=== PATIENT | male | born 1935 | race African-American/Black ===

== ENCOUNTER 2021-10-26 00:59 | Inpatient (IN) | payer OTHER ==
[2021-10-26] VITALS (7 sets, daily range): BP systolic 116–142; BP diastolic 59–78
[~2021-10-26] VITALS: Ht 172.7 cm; Wt 72.6 kg
[2021-10-26] MEDS ORDERED: SODIUM CHLORIDE 0.9% 1,000 ML IV ONE (01:30)
[2021-10-26 03:41] LABS: EOSINOPHILS % 0.6 % (0.0-5.0); HEMATOCRIT. 32.6 % (42.0-52.0); HEMOGLOBIN. 10.8 g/dL (14.0-18.0); LYMPHOCYTES % 13.5 % (20.0-50.0); MEAN CORPUSCULAR HEMOGLOBIN 29.7 pg (28.0-32.0); MEAN CORPUSCULAR VOLUME 89.5 fL (80.0-94.0); MEAN PLATELET VOLUME 8.6 fl (7.4-10.4); NEUTROPHILS % 74.9 % (40.0-76.0); PLATELET 127 x1000/uL (130-400); RED BLOOD CELL COUNT 3.64 mill/uL (4.7-6.1)
[2021-10-26 03:47] LABS: CHLORIDE 115 mEq/L (98-107)
[2021-10-26] MEDS ORDERED: ONDANSETRON HCL 4MG/2ML INJ IV STA (04:28)
[2021-10-26] MEDS ORDERED: MORPHINE SULFATE 4 MG/ML CPJ (NOT FOR IM USE) IV STA (04:28)
[2021-10-26] MEDS ORDERED: FUROSEMIDE 40MG/4ML VIAL IV ONE (04:30)
[2021-10-26] MEDS ORDERED: ASPIRIN 81MG TABLET PO ONE (04:30)
[2021-10-26 04:47] LABS: CLARITY URINE CLEAR (CLEAR); COLOR URINE YELLOW (YELLOW); KETONES URINE NEGATIVE (NEGATIVE); LEUKOCYTE ESTERASE URINE 1+ (NEGATIVE); NITRITE URINE POSITIVE (NEGATIVE); OCCULT BLOOD URINE NEGATIVE (NEGATIVE); PROTEIN URINE 1+ (NEGATIVE); SPECIFIC GRAVITY URINE 1.015 (1.005-1.030); UROBILINOGEN URINE 0.2 E.U./dL (0.2-1.0)
[2021-10-26] MEDS ORDERED: LEVOFLOXACIN 500MG PREMIX 100 ML IV ONE (05:00)
[2021-10-26] MEDS ORDERED: ENOXAPARIN 80MG/0.8ML SYR SUBCUT ONE (05:00)
[2021-10-26] MEDS ORDERED: ACETAMINOPHEN 325MG TABLET PO PRN (10:45)
[2021-10-26] MEDS ORDERED: LEVOFLOXACIN 500MG PREMIX 100 ML IV SCH (10:45)
[2021-10-26] MEDS ORDERED: ONDANSETRON HCL 4MG/2ML INJ IV PRN (10:45)
[2021-10-26] MEDS ORDERED: SODIUM CHLORIDE 0.45% 1,000 ML IV SCH (10:45)
[2021-10-26] MEDS: ENOXAPARIN 80MG/0.8ML SYR SUBCUT SCH (14:56)
[2021-10-26] MEDS ORDERED: TRAMADOL 50MG TABLET PO PRN (16:15)
[2021-10-26] MEDS ORDERED: NALOXONE HCL 0.4MG/ML VIAL IV PRN (16:15)
[2021-10-26] MEDS: FUROSEMIDE 40MG/4ML VIAL IVP SCH (18:00)
[2021-10-26] MEDS: ATORVASTATIN CALCIUM 40MG TABLET PO SCH (21:00)
[2021-10-27] VITALS (9 sets, daily range): BP systolic 111–137; BP diastolic 53–70
[2021-10-27] MEDS: ENOXAPARIN 80MG/0.8ML SYR SUBCUT SCH ×3 (00:06→23:40)
[2021-10-27] MEDS: FUROSEMIDE 40MG/4ML VIAL IVP SCH ×2 (05:40→18:28)
[2021-10-27] MEDS: LEVOFLOXACIN 250MG PREMIX 50 ML IV SCH (10:15)
[2021-10-27] MEDS: LEVOTHYROXINE SODIUM 50MCG TABLET PO SCH (10:15)
[2021-10-27 10:42] LABS: BASOPHILS % 0.8 % (0.0-2.0); EOSINOPHILS % 0.4 % (0.0-5.0); HEMATOCRIT. 33.4 % (42.0-52.0); HEMOGLOBIN. 10.9 g/dL (14.0-18.0); LYMPHOCYTES % 9.9 % (20.0-50.0); MEAN CORPUSCULAR HEMOGLOBIN 30.3 pg (28.0-32.0); MEAN CORPUSCULAR VOLUME 92.5 fL (80.0-94.0); MEAN PLATELET VOLUME 9.2 fl (7.4-10.4); MONOCYTES % 10.7 % (2.0-8.0); NEUTROPHILS % 78.2 % (40.0-76.0); PLATELET 115 x1000/uL (130-400); RED BLOOD CELL COUNT 3.61 mill/uL (4.7-6.1); RED CELL DISTRIBUTION WIDTH 19.9 % (11.6-14.6)
[2021-10-27] MEDS ORDERED: BRIM5DRO6 EACHEYE (16:19)
[2021-10-27] MEDS ORDERED: FERR-71 MT (16:25)
[2021-10-27] MEDS ORDERED: LATA7.5D OP (16:25)
[2021-10-27] MEDS ORDERED: HYDR100T26 PO (16:25)
[2021-10-27] MEDS ORDERED: EPOE200014 SQ (16:35)
[2021-10-27] MEDS ORDERED: SODI650T MT (16:35)
[2021-10-27] MEDS ORDERED: ASCO125T PO (16:36)
[2021-10-27] MEDS ORDERED: ISOS10TA53 MT (16:44)
[2021-10-27] MEDS ORDERED: ASPI-1497 MT (16:44)
[2021-10-27] MEDS ORDERED: FURO40TA5 PO (16:44)
[2021-10-27] MEDS ORDERED: APIX2.5T PO (16:44)
[2021-10-27] MEDS ORDERED: ATOR-2 MT (16:44)
[2021-10-27] MEDS ORDERED: POTA20TA82 MT (16:44)
[2021-10-27 16:55] LABS: INR 1.2; PROTHROMBIN TIME 12.4 sec (9.6-11.0)
[2021-10-27] MEDS: ATORVASTATIN CALCIUM 40MG TABLET PO SCH (20:18)
[2021-10-28] VITALS (7 sets, daily range): BP systolic 108–133; BP diastolic 55–72
[2021-10-28] MEDS: FUROSEMIDE 40MG/4ML VIAL IVP SCH ×2 (05:43→18:03)
[2021-10-28 07:15] LABS: BASOPHILS % 0.7 % (0.0-2.0); EOSINOPHILS % 0.6 % (0.0-5.0); HEMATOCRIT. 30.7 % (42.0-52.0); HEMOGLOBIN. 9.9 g/dL (14.0-18.0); LYMPHOCYTES % 20.1 % (20.0-50.0); MEAN CORPUSCULAR HEMOGLOBIN 29.5 pg (28.0-32.0); MEAN CORPUSCULAR VOLUME 91.2 fL (80.0-94.0); MEAN PLATELET VOLUME 8.9 fl (7.4-10.4); MONOCYTES % 13.1 % (2.0-8.0); NEUTROPHILS % 65.5 % (40.0-76.0); PLATELET 111 x1000/uL (130-400); RED BLOOD CELL COUNT 3.37 mill/uL (4.7-6.1); RED CELL DISTRIBUTION WIDTH 19.4 % (11.6-14.6)
[2021-10-28] MEDS: LEVOTHYROXINE SODIUM 50MCG TABLET PO SCH (08:33)
[2021-10-28] MEDS: LEVOFLOXACIN 250MG PREMIX 50 ML IV SCH (08:35)
[2021-10-28] MEDS: ENOXAPARIN 80MG/0.8ML SYR SUBCUT SCH (12:14)
[2021-10-28] MEDS: ATORVASTATIN CALCIUM 40MG TABLET PO SCH (21:00)
[2021-10-29] VITALS (8 sets, daily range): BP systolic 112–130; BP diastolic 48–62
[2021-10-29] MEDS: ENOXAPARIN 80MG/0.8ML SYR SUBCUT SCH ×2 (00:06→12:09)
[2021-10-29] MEDS: FUROSEMIDE 40MG/4ML VIAL IVP SCH ×2 (05:14→17:35)
[2021-10-29] MEDS: LEVOTHYROXINE SODIUM 50MCG TABLET PO SCH (07:30)
[2021-10-29 07:37] LABS: BASOPHILS % 0.5 % (0.0-2.0); EOSINOPHILS % 0.1 % (0.0-5.0); HEMATOCRIT. 32.1 % (42.0-52.0); HEMOGLOBIN. 10.4 g/dL (14.0-18.0); LYMPHOCYTES % 10.6 % (20.0-50.0); MEAN CORPUSCULAR HEMOGLOBIN 29.5 pg (28.0-32.0); MEAN CORPUSCULAR VOLUME 90.9 fL (80.0-94.0); MEAN PLATELET VOLUME 9.4 fl (7.4-10.4); MONOCYTES % 10.9 % (2.0-8.0); NEUTROPHILS % 77.9 % (40.0-76.0); PLATELET 124 x1000/uL (130-400); RED BLOOD CELL COUNT 3.54 mill/uL (4.7-6.1); RED CELL DISTRIBUTION WIDTH 18.9 % (11.6-14.6)
[2021-10-29] MEDS: LEVOFLOXACIN 250MG PREMIX 50 ML IV SCH (08:15)
== END 2021-10-29 22:06 | disposition short-term general hospital (02) | DRG 280 ==
LOC: ER 00:59 → EDBEDREQ 04:59 → EDBEDREQSVC 04:59 → EDBEDREQTM 04:59 → 5EST 04:59 → EDBEDREQ 05:01 → ENRESERV 08:45
PROVIDERS: ADMIT Internal Medicine; ATTEND Internal Medicine
DX: I11.0 Hypertensive heart disease with heart failure (principal); I21.4 Non-ST elevation (NSTEMI) myocardial infarction; E43 Unspecified severe protein-calorie malnutrition; N17.0 Acute kidney failure with tubular necrosis; I50.23 Acute on chronic systolic (congestive) heart failure; S42.202A Unspecified fracture of upper end of left humerus, initial encounter for closed fracture; N39.0 Urinary tract infection, site not specified; G90.8 Other disorders of autonomic nervous system; I42.9 Cardiomyopathy, unspecified; I48.91 Unspecified atrial fibrillation; E87.8 Other disorders of electrolyte and fluid balance, not elsewhere classified; E78.5 Hyperlipidemia, unspecified; E11.9 Type 2 diabetes mellitus without complications; E03.9 Hypothyroidism, unspecified; Z20.822 Contact with and (suspected) exposure to COVID-19; D69.6 Thrombocytopenia, unspecified; D64.9 Anemia, unspecified; I35.0 Nonrheumatic aortic (valve) stenosis; I50.82 Biventricular heart failure; R00.1 Bradycardia, unspecified; W18.39XA Other fall on same level, initial encounter; Z68.24 Body mass index [BMI] 24.0-24.9, adult; Z88.0 Allergy status to penicillin; Y93.89 Activity, other specified; Y92.89 Other specified places as the place of occurrence of the external cause; Y99.8 Other external cause status
CPT/HCPCS: 36415; 71045; 73060; 73502; 80048; 80053; 81003; 83880; 84439; 84443; 84484; 85025; 87077; 87186; 87426; 93005; 93306; 99291; J1650; J1940; J1956; J2270; J2405; J7030